=== PATIENT | male | born 1990 | race Caucasian/White ===

== ENCOUNTER 2018-08-16 14:37 | Emergency (ER) | payer OTHER ==
[~2018-08-16] VITALS: Ht 195.6 cm; Wt 136.1 kg
[2018-08-16 15:07] VITALS: BP 144/91
== END 2018-08-16 15:45 | disposition home or self-care (01) ==
LOC: EDBD 14:37 → ER 14:37
DX: S01.01XA Laceration without foreign body of scalp, initial encounter (principal); W22.8XXA Striking against or struck by other objects, initial encounter; Y93.89 Activity, other specified; Y99.8 Other external cause status; Y92.89 Other specified places as the place of occurrence of the external cause
CPT/HCPCS: 12002; 70450

== ENCOUNTER 2018-12-26 22:16 | Emergency (ER) | payer OTHER ==
[~2018-12-26] VITALS: Ht 195.6 cm; Wt 124.7 kg
[2018-12-26 22:21] VITALS: BP 127/75
[2018-12-26 23:12] LABS: Urine Bacteria FEW /hpf (None Seen); Urine Blood 2+ /uL (Negative); Urine Mucus FEW (None Seen); Urine Specific Gravity 1.029 (1.001-1.035); Urine WBC 5 /hpf (0 - 3)
== END 2018-12-26 23:47 | disposition home or self-care (01) ==
LOC: EEVIPCON 22:21 → ER 22:21
DX: S91.201A Unspecified open wound of right great toe with damage to nail, initial encounter (principal); W22.8XXA Striking against or struck by other objects, initial encounter; Y93.89 Activity, other specified; Y99.8 Other external cause status; Y92.89 Other specified places as the place of occurrence of the external cause
CPT/HCPCS: 11730; 81001

== ENCOUNTER 2022-05-11 10:06 | Emergency (ER) | payer BC, OTHER ==
[~2022-05-11] VITALS: Ht 195.6 cm; Wt 121.0 kg
[~2022-05-11 10:06] MED LIST: SERT50TA PO
[2022-05-11 10:08] VITALS: BP 127/79
[2022-05-11 11:43] LABS: INR 1.01 (0.9-1.15); Partial Thromboplastin Time 27.3 sec (24.6-33.4)
[2022-05-11 11:45] LABS: Albumin 4.3 g/dL (3.4-5.0); Calcium 9.2 mg/dL (8.5-10.1); Potassium 3.8 mmol/L (3.5-5.1)
[2022-05-11 11:49] LABS: Bilirubin, Total 0.6 mg/dL (0.2-1.0); Total Protein 7.5 g/dL (6.4-8.2)
== END 2022-05-11 12:55 | disposition home or self-care (01) ==
LOC: ER 10:06
DX: R74.01 Elevation of levels of liver transaminase levels (principal); F12.10 Cannabis abuse, uncomplicated; Z90.89 Acquired absence of other organs
CPT/HCPCS: 36415; 76705; 80053; 85610; 85730